=== PATIENT | female | born 1980 | race Caucasian/White ===

== ENCOUNTER 2019-02-05 22:20 | Emergency (ER) | payer BC, SELFPAY ==
[2019-02-05 22:21] VITALS: BP 159/102; PULSE 104; RESP 16; TEMP 37.1; O2SAT 97; BMI 32.5
--- NOTE | 2019-02-05 22:32 | ED.VIS.LOWEX ---
History of Present Illness Chief Complaint: Lower Extremity Injury Informant: Patient Occurred: Hours - 2 Mechanism/Context: - - twisted left ankle while walking on pavement Context: Sudden Onset Timing: Continuous Quality of Pain: Aching Location: left lateral ankle Current Severity: Moderate Maximum Severity: Severe Worsened by: WBing, moving Relieved by: remaining still Associated Symptoms: Negative for: Parasthesia, Weakness, Loss of Funtion Narrative: Patient states she has a history of multiple foot surgeries and has unstable feet and ankles. She twisted her ankle tonight. She did not fall or injure anything else. She has been able to bear weight but just barely. She is using crutches to help her. She denies any numbness. Past Medical History - Allergies and Home Meds Allergies/Adverse Reactions: Allergies cefaclor [From Ceclor] Adverse Reaction (Verified 02/05/19 22:23) Upset Stomach metronidazole [From Flagyl] Adverse Reaction (Verified 02/05/19 22:23) Hives sulfamethoxazole [From Septra] Adverse Reaction (Verified 02/05/19 22:23) Upset Stomach trimethoprim [From Septra] Adverse Reaction (Verified 02/05/19 22:23) Upset Stomach Primary Care Physician: [facility] Doctor,Out of [NON-STAFF] - Past Medical History: None Surgical History: - - Feet orthopedic Lives: Alone Drugs: None Review of Systems Musculoskeletal: Reports: Swelling - Focal lateral ankle and foot on the left only, Extremity Pain Skin: Denies: Rash, Wounds Neurological: Denies: Headache, Weakness, Numbness Physical Exam Vital Signs/Narrative: Vital Signs Temp Pulse Resp BP Pulse Ox 02/05/19 22:21 98.7 F 104 H 16 159/102 H 97 Inital Vital Signs reviewed: Yes - Extremity Exam Left Ankle: Hematoma - Swelling and tenderness lateral malleolus. Joint is stable with lateral forces. Nontender medial malleolus, calcaneus, midfoot, and proximal fibula., Limited ROM. Negative for: Deformity Left Foot: Hematoma - Swelling and tenderness at the lateral aspect of the base of the fifth metatarsal. Skin intact. General: Well nourished, Well developed Head: Normocephalic, Atraumatic Skin: Normal color, No rash, No Trauma Neurological: Alert, Oriented x3, Cranial nerves II-XII grossly intact, Normal Strength, Normal Sensation Psychological: Normal affect, Normal Mood Diagnostic/Tx/Re-eval Impressions Ankle X-Ray 02/05/19 22:35 IMPRESSION: 1. An acute avulsion fracture at the tip of the lateral malleolus is present. Marked soft tissue swelling is present over the lateral side of ankle joint. 2. An acute mildly comminuted fracture of the lateral side of the talus is present minor displacement of the fracture fragments. Fracture at the base of the fifth metatarsal bone is described under the dedicated foot x-ray. Electronically Signed: Lakhwinder Amato MD at 22:58 EST , Service support , Foot X-Ray 02/05/19 22:35 IMPRESSION: 1. Acute mildly displaced fracture at the base of the fifth metatarsal bone. 2. Acute avulsion fracture at the tip of the lateral malleolus. Electronically Signed: Lakhwinder Amato MD at 22:54 EST , Service support , 02/05/19 22:35 Ankle min 3 Views [RAD] Stat Foot 2 Views [RAD] Stat - Medical Decision Making X-rays interpreted as above, the talus does not appear to be in multiple pieces. There is some avulsion at the lateral aspect, and the base of the fifth metatarsal looks to likely be more of an avulsion fracture as opposed to a Zelaya. I discussed with Dr. Woods, who looked at the x-rays. At this time a recommendation is boot orthosis, nonweightbearing status, patient already has crutches, and follow-up in about 1 week in the office. I will give her a prescription for some pain medication. ED Disposition - Plan for ED Patient: Disposition: Home or Assisted Living Diagnosis: Avulsion fracture of left talus, Fracture of base of fifth metatarsal bone of left foot, Closed avulsion fracture of distal end of left fibula Instructions: ANKLE FRACTURE (Distal Fibula), closed, FRACTURE, Foot Prescriptions: Oxycodone HCl/Acetaminophen [Percocet 5/325] 1 tab PO Q6H PRN PRN 3 Days #12 tab PRN Reason: Pain Prescription Printed Referrals: Martha Woods DPM [STAFF PHYSICIAN] - 1 Week Additional Instructions: Do not bear weight on your left lower extremity
--- NOTE | 2019-02-05 22:35 | RAD_ITS ---
STUDY: X-RAY - LEFT ANKLE REASON FOR EXAM: Female, 38 years old. FALL TONIGHT. LATERAL PAIN AND SWELLING. TECHNIQUE: 3 view(s) of the ankle. COMPARISON: None. FINDINGS: An acute avulsion fracture at the tip of the lateral malleolus is present. Marked soft tissue swelling is present over the lateral side of ankle joint. An acute mildly comminuted fracture of the lateral side of the talus is present minor displacement of the fracture fragments. Fracture at the base of the fifth metatarsal bone is described under the dedicated foot x-ray. No additional acute fractures are seen. Normal visualized distal tibia and fibula. Normal medial malleolus. Normal tibiotalar articulation and ankle mortise. Normal visualized calcaneus. The visualized subtalar, talonavicular, calcaneocuboid and tarsal articulations are normal. RAD/Ankle min 3 Views IMPRESSION: 1. An acute avulsion fracture at the tip of the lateral malleolus is present. Marked soft tissue swelling is present over the lateral side of ankle joint. 2. An acute mildly comminuted fracture of the lateral side of the talus is present minor displacement of the fracture fragments. Fracture at the base of the fifth metatarsal bone is described under the dedicated foot x-ray. Electronically Signed: Lakhwinder Amato MD at 22:58 EST , Service support ,
--- NOTE | 2019-02-05 22:35 | RAD_ITS ---
STUDY: X-RAY - LEFT FOOT CLINICAL: Female, 38 years old. FALL TONIGHT. LEFT 5TH METATARSAL PAIN AND SWELLING. TECHNIQUE: 2 view(s) of the foot. COMPARISON: None. FINDINGS: An acute oblique fracture is present through the base of the fifth metatarsal bone extending into the joint space. There is minimal displacement of the fracture fragments. Chronic postsurgical changes are seen in the head and neck of the fifth metatarsal bone and in the mid shaft a small metallic pin is present. Chronic postoperative changes are also seen in the head of the first metatarsal bone. The remaining osseous structures of the foot are unremarkable. Diffuse soft tissue swelling is present. Normal talus, calcaneus, and tarsal bones. Normal visualized subtalar, talonavicular, calcaneocuboid, tarsal and tarsometatarsal articulations. A small avulsion fracture is present at the tip of the lateral malleolus. RAD/Foot 2 Views IMPRESSION: 1. Acute mildly displaced fracture at the base of the fifth metatarsal bone. 2. Acute avulsion fracture at the tip of the lateral malleolus. Electronically Signed: Lakhwinder Amato MD at 22:54 EST , Service support ,
[2019-02-05] MEDS: oxyCODONE 5 MG Tablet PO (23:59)
== END 2019-02-06 00:18 | disposition home or self-care (01) ==
PROVIDERS: Emergency Provider Emergency Medicine
DX: S92.142A Displaced dome fracture of left talus, initial encounter for closed fracture (principal); S92.352A Displaced fracture of fifth metatarsal bone, left foot, initial encounter for closed fracture; S82.62XA Displaced fracture of lateral malleolus of left fibula, initial encounter for closed fracture; X50.1XXA Overexertion from prolonged static or awkward postures, initial encounter; Y93.01 Activity, walking, marching and hiking; Y92.480 Sidewalk as the place of occurrence of the external cause; Y99.9 Unspecified external cause status; Z79.899 Other long term (current) drug therapy
CPT/HCPCS: 73610; 73620; 99283

== ENCOUNTER → 2019-02-09 09:52 | Outpatient (CLI) | payer BC, SELFPAY ==
[2019-02-05 22:21] VITALS: BMI 32.5
[2019-02-09 12:25] LABS: Vitamin D,25 Hydroxy 23.8 ng/mL (29.95-100.01)
== END ==
PROVIDERS: Referring Provider Podiatrist; Visit Provider Podiatrist
DX: E55.9 Vitamin D deficiency, unspecified (principal); S82.899A Other fracture of unspecified lower leg, initial encounter for closed fracture; X58.XXXA Exposure to other specified factors, initial encounter; Y93.9 Activity, unspecified; Y92.9 Unspecified place or not applicable; Y99.9 Unspecified external cause status
CPT/HCPCS: 36415; 82306

== ENCOUNTER 2019-08-10 15:00 | Outpatient (RCR) | payer BC, SELFPAY ==
--- NOTE | 2019-07-15 11:58 | HP.PTEVAL_ITS ---
Patient's Visit Information SHIMA BOSE is a 39 year old F referred to Physical Therapy by Dr. Martha Woods DPM with a diagnosis of healed 5th metatarsal fracture, peroneal tendonitis, and walking difficulty. Date of Evaluation: 07/15/19 Physical Therapist: Johnathan Delong DPT - Visit Plan Frequency: 2-3x /Week Duration: 4-6 Weeks Plan: Start with BLE ankle, knee, hip strengthening. Add in walking progression for HEP. Eccentric loading of L peroneals - Subjective Pt. is here today for her initial evaluation with diagnosis of healed 5th metatarsal fracture, peroneal tendonitis, adn walking difficulty. Pt. reports ahving multiple fracture in her L ankle and foot over the past few years. Her most recent injury was just walking and twisted her ankle resulting in a 5th metatarsal fx. Pt. was in a boot for ~5 months per patient. Pt. just recently was allowed to remove the boot ~2 weeks ago. Pt. has been walking on her treadmill upto an hour with some soreness that does alleviate with in 24 hours. Pt. reports pain at 5th metatarsal, inferior to lateral malleolus and along peroneal tendon and muscle belly. 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 Pt. has a history of multiple fractures of L foot/ankle, but also other body parts. No osteoporosis, noted with scans. Pt. does have heart disease and a previous lumbar surgery. She also had a recent breast reduction, elective, just to be aware for lifting. Pt. is hopeful to reduce her foot pain in order to get back to all recreational activities without limitations. - Pain L 5th metatarsal Pain Intensity (Out of 10): 2 Pain Intensity Range: 0, 5 L lateral malleolus Pain Intensity (Out of 10): 1 Pain Intensity Range: 0, 4 L peroneal region Pain Intensity (Out of 10): 2 Pain Intensity Range: 0, 6 - Objective POSTURE: Pt. had general flexed posture, rounded thoracic spine (improves with VCing), normal illiac crest height. Pt. has normal ankle positioning in stance. Slight L ankle EVR postioning. PALPATION: Pt. has tenderness along peroneal tendon and muscle belly. Pt. has tenderness inferior aspect of lateral malleolus, tenderness at 5th metatarsal. NEURO: normal throughout. Normal sensation and normal DTR of BLEs. ROM: L ankle- DF 18deg, PF 38deg, INV 18deg, EVR 14deg mild increase NW. Pt. has good HS length. L hip- good ROM no increase in symptoms. R ankle- DF 18deg, PF 43deg, INV 18deg, EVR 18deg. No pain. R HS length- good, good hip ROM as well. MMT: LLE- ankle- DF 5-/5, PF 5-/5, EVR 4+/5, INV 5-/5. Knee- ext 5-/5, flexion 4+/5; hip- flexon 5-/5, abd 4/5, ext 4/5. RLE- ankle- 5/5 throughout; knee- ext 5-/5, flexion 5-/5; hip- flexion 5- /5, adb 4/5, ext 4/5. GAIT: Pt. ambulates with AD, but does ahve increased pronation of L foot and hind foot valgus bilaterally, L worse than R. STAIRS: Pt. has increased anterior/lateral pain in her ankle with loading LLE with descending. - Goals Goal 1:: LTG: Pt. to be I with HEP. Goal Time Frame: 4-6 Weeks Goal 2:: STG: Pt. to walk upto 30min without increase in symptoms. Goal Time Frame: 2-4 Weeks Goal 3:: LTG: Pt. to complete recreational walking upto 1 hour without increase in symptoms. Goal Time Frame: 4-6 Weeks Goal 4:: LTG: Pt. to have increased strength of BLEs and core by 1/2 grade of all effected musculature. Goal Time Frame: 4-6 Weeks Goal 5:: LTG: Pt. to have increased controlin SLS on LLE, being able to maintain SLS without external support of atleast 30sec. - Rehabilitation Potential Physical Therapy Diagnosis: Pt. has signs and symptoms consistent with healed 5th metatarsal fracture, peroneal tendonitis, adn walking difficulty. Pt. has subsequent weakness in BLEs, L worse than R. She has increased pain and increase difficulty with prolonged walking. Pt. would benefit from PT to work on general LE strengthening, eccentric L peroneal strengthening and L ankle stability exercises. Rehabilitation Potential: Good - Anticipated Interventions Patient/Client Instruction: Educate patient on: Condition, Plan of Care, Risk Factors, Benefits of Fitness Program For the Purpose of:: To improve decision making, To facilitate caregiver knowledge, To improve self management, To prevent re-injury, To improve ability to perform tasks related to life management, To improve tolerance to ADL's Therapeutic Exercise to Include: Strength training, Power training, Endurance training, Balance training, Coordination, Body mechanics, Postural training, Flexibilty training, Gait and locomotor training, Passive ROM, Active ROM For the Purpose of:: To decrease pain, To decrease swelling/inflammation, To in crease ROM, To improve nutrient delivery to tissue, To increase oxygenation perfusion, To improve muscle performance and motor function, To improve ability to perform ADL's, To increase tolerance to activity/condition/position, To improve performance and independence with ADL's, To decrease level of supervision to perform tasks, To improve ability of physical actions for home/community/work/leisure, To improve gait and locomotor functions, To improve health of tissue, To decrease soft tissue restriction, To improve endurance TENS: Yes IF ES: Yes Cryotherapy (ice pack, ice massage): Yes Thermo therapy (hot pack): Yes Ultrasound (thermal/non thermal): Yes For the Purpose of:: To decrease pain, To decrease swelling/inflammation, To increase ROM, To improve nutrient delivery to tissue, To increase oxygenation perfusion, To improve muscle performance and motor function, To improve ability of physical actions for home/community/work/leisure, To improve gait and locomotor functions, To improve health of tissue, To decrease soft tissue restri ction, To increase flexibility/ROM Thank you for the opportunity to evaluate your patient. For Medicare and Medicare HMO plans, please review the plan of care and approve it. It will need to be FAXED BACK to us at [phone] for Medicare purposes. For Medicare only, by signing this I certify the plan of care. Please let me know if there are questions or concerns regarding this plan of care. Physician Signature: Date:
== END 2019-08-10 19:00 | disposition home or self-care (01) ==
LOC: PT 15:00
PROVIDERS: Referring Provider Podiatrist; Visit Provider Podiatrist
DX: S92.355D Nondisplaced fracture of fifth metatarsal bone, left foot, subsequent encounter for fracture with routine healing (principal); M76.72 Peroneal tendinitis, left leg; R26.2 Difficulty in walking, not elsewhere classified
CPT/HCPCS: 97110; 97161

== ENCOUNTER → 2022-04-13 | Outpatient (CLI) | payer OTHER, SELFPAY ==
--- NOTE | 2022-04-13 07:35 | MRI_ITS ---
STUDY: MRI LUMBAR SPINE WITHOUT CONTRAST REASON FOR EXAM: Female, 41 years old. Low back pain, hx discectomy/laminectomy. Worsenin -- Worsening radicular pain, failed PT TECHNIQUE: Standardized fat and water weighted pulse sequences were obtained in the sagittal and axial planes. COMPARISON: None FINDINGS: T12-L1: Normal endplates. Normal disc height, hydration and morphology. Normal bilateral facet joints. Normal central canal and bilateral lateral recesses. Normal bilateral intervertebral neural foramina. Normal lumbar lordosis. There is mild levo scoliosis. Normal conus medullaris that terminates at T12 L1-2: Normal endplates. Normal disc height, hydration and normal morphology Normal bilateral facet joints. Normal central canal and bilateral lateral recesses. Normal bilateral intervertebral neural foramina. L2-3: Normal endplates. Normal disc height, hydration and minimal annular bulge. Normal bilateral facet joints. Normal central canal and bilateral lateral recesses. Normal bilateral intervertebral neural foramina. L3-4: Normal endplates. Normal disc height, hydration and morphology. Normal bilateral facet joints. Normal central canal and bilateral lateral recesses. Normal bilateral intervertebral neural foramina. L4-5: Normal endplates. Normal disc height, desiccation mild annular bulge with small central disc protrusion.. Facet arthropathy and thickening of ligamenta flava more severe on the left.. Mild narrowing of the central canal and bilateral lateral recesses. Mild right neural foraminal stenosis and moderate narrowing on the left L5-S1: Grade 1 spondylolisthesis.. Normal disc space height with mild annular bulge and moderate sized broad-based central/left paracentral disc protrusion compressing and displacing the descending left S1 nerve root. Bilateral facet arthropathy. Mild narrowing of the central canal and moderate left lateral recess stenosis. Moderate bilateral neural foraminal encroachment Normal visualized sacral ala. Normal visualized paraspinous soft tissue structures. MRI/Spine Lumbar (Routine) IMPRESSION: No evidence for acute fracture or other significant bony pathology. Mild scoliosis and degenerative changes. Spinal stenosis at L4-5 and L5-S1 secondary to disc disease and facet arthropathy more severe on the left. Findings as above Electronically Signed: Sedrick Garza MD at 20:00 EST ,
== END | disposition home or self-care (01) ==
LOC: MRI 07:33
PROVIDERS: PCP Internal Medicine; Visit Provider Internal Medicine
DX: M54.41 Lumbago with sciatica, right side (principal); M54.42 Lumbago with sciatica, left side; G89.29 Other chronic pain; Z98.890 Other specified postprocedural states
CPT/HCPCS: 72148

== ENCOUNTER → 2022-08-07 | Outpatient (CLI) | payer OTHER, SELFPAY ==
[2022-08-07 10:33] LABS: Absolute Lymphocyte Count 2.23 X10^3/uL (0.83-4.51); Basophil# 0.05 X10^3/uL; Basophil% 0.4 % (0-1); Eosinophil# 0.17 X10^3/uL; Eosinophils% 1.5 % (0-5); Hematocrit 41.7 % (37-47); Hemoglobin 13.5 g/dL (12.0-15.0); Lymphocyte # 2.23 X10^3/ul (0.83-4.51); Lymphocyte % 19.5 % (19-41); Mean Corp Hgb Conc 32.4 g/dL (32-36); Mean Corpuscular Hgb 26.3 pg (27.0-32.0); Mean Corpuscular Volume 81.3 fL (81-99); Mean Platelet Vol. 9.5 fl (6.2-12.0); Monocyte# 0.88 X10^3/uL; Monocyte% 7.7 % (0-10); NRBC Flagged by Analyzer 0 % (0-5); Neutrophil # 8.04 X10^3/uL (2.7-7.7); Neutrophil % 70.5 % (47-70); Platelet Count 400 K/mm3 (150-450); RBC Distribution Width CV 15.1 % (11.6-14.6); RBC Distribution Width SD 44.8 fl (35.1-43.9); Red Blood Count 5.13 M/mm3 (4.2-5.4); White Blood Count 11.4 K/mm3 (4.4-11.0)
[2022-08-07 11:08] LABS: Hemoglobin A1c 5.2 % (3.8-5.6)
[2022-08-07 11:14] LABS: Insulin 17.6 mU/L (2.6-37.6); Vitamin D,25 Hydroxy 48.5 ng/mL
[2022-08-07 11:16] LABS: ALB/GLOB Ratio 0.9 RATIO (0.9-2.4); AST(SGOT) 21 U/L (15-37); Alanine Aminotransfer ALT/SGPT 32 U/L (13-56); Albumin, Serum 3.5 g/dL (3.2-5.0); Alkaline Phosphatase 72 U/L (45-117); Anion Gap 5 (5-15); BUN 13 mg/dL (7-18); BUN/Creat Ratio 14.3 RATIO (10-20); Chloride 105 mmol/L (98-107); Cholesterol 187 mg/dL (200); Creatinine, Serum 0.91 mg/dL (0.55-1.02); EST Glomerular Filtration Rate 72 mL/min (>60); Est Glom Filt Rate - Afr Amer 87 mL/min (>60); Globulin 3.9 g/dL (2.2-4.2); Glucose 92 mg/dL (74-106); High Density Lipoprotein 38 mg/dL; Iron 34 ug/dL (50-170); Iron Binding Capacity,Total 501 ug/dL (250-450); Magnesium 2.3 mg/dL (1.6-2.6); PERCENT IRON SATURATION 6.8 % (15.0-55.0); Potassium 3.7 mmol/L (3.5-5.1); Protein, Total 7.4 g/dL (6.4-8.2); Sodium Level 135 mmol/L (136-145); Thyroid Stim Hormone (TSH) 3.82 uIU/mL (0.358-3.74); Triglycerides 240 mg/dL; Very Low Density Lipoprotein 48 mg/dL (5-40)
[2022-08-07 13:53] LABS: Free T3 2.7 pg/mL (2.18-3.98)
== END | disposition home or self-care (01) ==
LOC: LAB 09:59
PROVIDERS: PCP Internal Medicine; Referring Provider Internal Medicine; Visit Provider Internal Medicine
DX: M51.27 Other intervertebral disc displacement, lumbosacral region (principal); E55.9 Vitamin D deficiency, unspecified; I10 Essential (primary) hypertension; R35.0 Frequency of micturition; R73.9 Hyperglycemia, unspecified; Z98.890 Other specified postprocedural states; Z13.220 Encounter for screening for lipoid disorders
CPT/HCPCS: 36415; 80053; 80061; 82306; 83036; 83525; 83540; 83550; 83735; 84439; 84443; 84481; 85025

== ENCOUNTER 2022-08-26 11:57 | Day surgery (SDC) | payer OTHER, SELFPAY ==
[2022-08-26] VITALS (7 sets, daily range): BP systolic 106–141; BP diastolic 72–94; PULSE 80–93; RESP 16–18; TEMP 36.1–36.7; O2SAT 98–100; BMI 36.8
[2022-08-26 12:29] LABS: Internal QC Validated? YES +Cl - CLEAR BKGD; Pregnancy, Urine Negative Negative
--- NOTE | 2022-08-26 12:30 | RAD_ITS ---
PROCEDURE: Lumbar radiofrequency ablations. DATE OF EXAMINATION: August 26, 2022 INDICATION: Female, 42 years old. Chronic back pain. FLUOROSCOPY TIME (if supplied): 00:09 minutes/seconds. 9 images are submitted RAD/Fluor Guidance for Spine Inj IMPRESSION: Intraoperative images are provided for radiofrequency ablations on the right at L2-3, L3-4, L4-5, and L5-S1. Electronically Signed: Rc Zavala MD at 14:30 EDT Reading Location ID and State: [id number] / Unknown , Service support ,
[2022-08-26] MEDS: Lactated Ringers 1,000 ML 15 ML IV (12:36)
[2022-08-26] MEDS: 0.9% Normal Saline (Pres. free 10 ML Vial (12:59)
[2022-08-26] MEDS: Lidocaine 1% (5 ml sdv) 5 ML Vial (13:12)
[2022-08-26] MEDS: MethylPREDNISolone Acetate 80 MG/ML Vial (13:12)
--- NOTE | 2022-08-26 13:30 | OP.PCM_ITS ---
Report of Operation Date of Procedure: 08/26/22 Pre-Operative Diagnosis: Lumbosacral radiculopathy, postlaminectomy syndrome of the lumbar spine, lumbosacral spinal stenosis Post-Operative Diagnosis: Lumbosacral radiculopathy, postlaminectomy syndrome of lumbar spine, lumbosacral spinal stenosis Surgery/Procedure Performed:: Diagnostic/therapeutic caudal epidural steroid injection under fluoroscopic guidance Type of Anesthesia: MAC Estimated Blood Loss (mL): Minimal Description of Procedure: DESCRIPTION OF PROCEDURE: History and physical of today was reviewed. Risks and benefits of the procedure were explained. The patient understood and agreed to proceed. Informed consent was obtained. IV inserted per routine protocol. The patient was taken to the operating room and placed in the prone position with a pillow positioned underneath the abdomen. The lower back and tailbone area was prepped and draped in a sterile fashion using iodine x3. Under fluoroscopy guidance on a lateral view, the caudal space was identified. The skin and subcutaneous tissue was anesthetized with approximately 3 mL of 1% lidocaine using a 25-gauge regular needle. Under direct visualization with fluoroscopy, using a 22-gauge 3-1/2-inch spinal needle, the needle was advanced via the skin through the sacral hiatus. The tip of the needle was passed thro ugh the sacrococcygeal ligament and advanced to approximately S4 area. After negative aspiration of blood or CSF, a total of 3 mL of contrast was injected to confirm correct placement of the needle as well as cephalad spread. The spread was followed to approximately L5 area. After confirmation on AP as well as lateral view and repeated negative aspiration, a total of 15 mL of preservative- free 0.125% Marcaine with 80 mg of Depo-Medrol was injected easily. The needle was then removed intact. The patient experienced no sign or symptoms of intrathecal or intravascular injection. The patient experienced no paresthesia. The procedure was completed without any apparent difficulty or any complications. The patient appeared to tolerate it well. ASSESSMENT AND PLAN: This is a 42-year-old female with lumbosacral radiculopathy, postlaminectomy syndrome of the lumbar spine, lumbosacral spinal stenosis status post diagnostic/therapeutic caudal epidural steroid injection, patient will continue her current medications, patient will follow in approximately 2 weeks for reevaluation. Complications None
== END 2022-08-26 13:53 | disposition home or self-care (01) ==
LOC: SDC 11:58 → AC 12:01
PROVIDERS: Anesthesiology; PCP Internal Medicine; Referring Provider Anesthesiology Pain Medicine; Visit Provider Anesthesiology Pain Medicine
PROC: 3E0S3BZ Introduction of Anesthetic Agent into Epidural Space, Percutaneous Approach (ICD-10-PCS; CPT 62282; principal; 2022-08-26 13:25)
DX: M96.1 Postlaminectomy syndrome, not elsewhere classified (principal); M54.17 Radiculopathy, lumbosacral region; M48.07 Spinal stenosis, lumbosacral region; I10 Essential (primary) hypertension; Z79.82 Long term (current) use of aspirin; Z79.899 Other long term (current) drug therapy
CPT/HCPCS: 62323; 64483; 77003; 81025; J7120; J3490

== ENCOUNTER → 2023-07-31 | Outpatient (CLI) | payer OTHER, SELFPAY ==
[2023-07-31 11:11] LABS: Absolute Lymphocyte Count 3.26 X10^3/uL (0.83-4.51); Absolute Neutrophil Count 7.3 X10^3/uL (2.0-7.7); Basophil# 0.05 X10^3/uL; Basophil% 0.4 % (0-1); Eosinophil# 0.55 X10^3/uL; Eosinophils% 4.6 % (0-5); Hemoglobin 14.3 g/dL (12.0-15.0); Lymphocyte # 3.26 X10^3/ul (0.83-4.51); Lymphocyte % 27.5 % (19-41); Mean Corp Hgb Conc 32.5 g/dL (32-36); Mean Corpuscular Hgb 26.9 pg (27.0-32.0); Mean Corpuscular Volume 82.7 fL (81-99); Mean Platelet Vol. 10.1 fl (6.2-12.0); Monocyte# 0.66 X10^3/uL; Monocyte% 5.6 % (0-10); NRBC Flagged by Analyzer 0 % (0-5); Neutrophil # 7.31 X10^3/uL (2.7-7.7); Neutrophil % 61.6 % (47-70); Platelet Count 350 K/mm3 (150-450); RBC Distribution Width CV 14.1 % (11.6-14.6); RBC Distribution Width SD 42.1 fl (35.1-43.9); Red Blood Count 5.32 M/mm3 (4.2-5.4); White Blood Count 11.9 K/mm3 (4.4-11.0)
[2023-07-31 11:39] LABS: Vitamin B12 394 pg/mL (211-911); Vitamin D,25 Hydroxy 35.4 ng/mL
[2023-07-31 12:01] LABS: AST(SGOT) 36 U/L (15-37); Alanine Aminotransfer ALT/SGPT 53 U/L (13-56); Albumin, Serum 3.8 g/dL (3.2-5.0); Alkaline Phosphatase 68 U/L (45-117); Anion Gap 4 (5-15); BUN 9 mg/dL (7-18); BUN/Creat Ratio 10.3 RATIO (10-20); Calcium,Total 9.3 mg/dL (8.5-10.1); Chloride 104 mmol/L (98-107); Cholesterol 167 mg/dL (200); Creatinine, Serum 0.88 mg/dL (0.55-1.02); EST Glomerular Filtration Rate 75 mL/min (>60); Est Glom Filt Rate - Afr Amer 90 mL/min (>60); Free T3 2.9 pg/mL (2.18-3.98); Globulin 3.7 g/dL (2.2-4.2); Glucose 95 mg/dL (74-106); High Density Lipoprotein 42 mg/dL; Protein, Total 7.5 g/dL (6.4-8.2); Sodium Level 135 mmol/L (136-145); T4 Free Direct 1.09 ng/dL (0.76-1.46); Thyroid Stim Hormone (TSH) 3.26 uIU/mL (0.358-3.74); Triglycerides 166 mg/dL; Very Low Density Lipoprotein 33 mg/dL (5-40)
== END | disposition home or self-care (01) ==
LOC: LAB 09:59
PROVIDERS: PCP Internal Medicine; Visit Provider Internal Medicine
DX: E88.818 Other insulin resistance (principal); E88.810 Metabolic syndrome; E61.1 Iron deficiency; E55.9 Vitamin D deficiency, unspecified; I10 Essential (primary) hypertension; Z13.220 Encounter for screening for lipoid disorders; R73.9 Hyperglycemia, unspecified
CPT/HCPCS: 36415; 80053; 80061; 82306; 82607; 83036; 83735; 84439; 84443; 84481; 85025

== ENCOUNTER → 2023-08-13 | Outpatient (CLI) | payer OTHER, SELFPAY ==
[2023-08-13 10:26] LABS: Glucose 101 mg/dL (74-106)
[2023-08-15 15:08] LABS: Insulin Level 7.1 uIU/mL (2.6-24.9)
== END | disposition home or self-care (01) ==
PROVIDERS: PCP Internal Medicine; Referring Provider Internal Medicine; Visit Provider Internal Medicine
DX: E88.818 Other insulin resistance (principal)
CPT/HCPCS: 36415; 82947; 83525

== ENCOUNTER → 2024-04-20 | Outpatient (CLI) | payer OTHER, SELFPAY ==
--- NOTE | 2024-04-20 16:27 | MRI_ITS ---
PROCEDURE: MRI cervical spine without IV contrast REASON FOR EXAM: Pain, radiculopathy TECHNIQUE: Multisequence multiplanar MR images of the cervical spine were obtained without the administration of intravenous contrast. COMPARISON: None. FINDINGS: Vertebral body heights are within normal limits. Negative for fracture or marrow replacement. Focal kyphosis of the lower cervical spine from C5 through C7. Alignment is otherwise within normal limits. Spinal cord is of normal caliber, contour and signal intensity. No paraspinal mass. C2-3: No focal disc abnormality, spinal stenosis or foraminal narrowing. C3-4: No focal disc abnormality or spinal stenosis. Mild bilateral foraminal narrowing. C4-5: No focal disc abnormality or spinal stenosis. Mild bilateral foraminal narrowing. C5-6: Small posterior disc bulge. No significant spinal stenosis or foraminal narrowing. C6-7: Small posterior disc osteophyte complex and bilateral uncovertebral arthrosis. Mild spinal stenosis. Moderate bilateral foraminal narrowing, greater on the right. C7-T1: No focal disc abnormality, spinal stenosis or foraminal narrowing. MRI/Spine Cervical (Routine) IMPRESSION: Acquired mild spinal stenosis and moderate bilateral foraminal narrowing at C6- 7. Reading Location: [place]
== END | disposition home or self-care (01) ==
PROVIDERS: PCP Internal Medicine; Referring Provider Anesthesiology Pain Medicine; Visit Provider Anesthesiology Pain Medicine
DX: M50.30 Other cervical disc degeneration, unspecified cervical region (principal)
CPT/HCPCS: 72141

== ENCOUNTER 2024-06-24 09:27 | Emergency (ER) | payer OTHER, SELFPAY ==
[2024-06-24 09:28] VITALS: BP 122/89; PULSE 79; RESP 14; TEMP 36.6; O2SAT 98
--- NOTE | 2024-06-24 09:59 | EKG12_ITS ---
Test Reason : SYNCOPE Blood Pressure : */* mmHG Vent. Rate : 87 BPM Atrial Rate : 87 BPM P-R Int : 214 ms QRS Dur : 106 ms QT Int : 396 ms P-R-T Axes : 52 -26 73 degrees QTcB Int : 476 ms Sinus rhythm with 1st degree A-V block Minimal voltage criteria for LVH, may be normal variant ( Surya product ) Septal infarct , age undetermined Abnormal ECG Confirmed by DERRICK NOLAN, FRANK ([id number]), web editor SIERRA PRUETT ([id number]) on 06/28/2024 7:05:43 AM Referred By: Confirmed By: FRANK MEZA MD
--- NOTE | 2024-06-24 09:59 | CT_ITS ---
PROCEDURE: BRAIN/HEAD WITHOUT CONTRAST 06/24/2024 REASON FOR EXAM: HEADACHS, HEAD TRAUMA TECHNIQUE: Head CT without intravenous contrast. Coronal and Sagittal reconstruction series were provided. One or more dose reduction techniques were used (e.g., Automated exposure control, adjustment of the mA and/or kV according to patient size, use of iterative reconstruction technique. RADIATION DOSE SUMMARY: CTDlvol: 47.06 mGy DLP: 837.39 mGycm COMPARISON: None FINDINGS: Brain: Normal CSF Spaces: Normal Sinuses/Mastoids: Clear at visualized levels Bones: Unremarkable CT/Brain/Head without Contrast IMPRESSION: NORMAL NONCONTRAST HEAD CT. Reading Location: [place]
--- NOTE | 2024-06-24 09:59 | CT_ITS ---
PROCEDURE: SINUS/FACIAL BONE REASON FOR EXAM: JAW PAIN, TRAUMA TECHNIQUE: CT of the paranasal sinuses without contrast. Coronal and Sagittal reconstruction series were provided. One or more dose reduction techniques were used (e.g., Automated exposure control, adjustment of the mA and/or kV according to patient size, use of iterative reconstruction technique). COMPARISON: None. 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 Nasal Septum: Deviation towards the left side of the midline with a bony spur. Mastoids/Middle Ears: Unremarkable CT/Sinus/Facial Bone IMPRESSION: No evidence of sinusitis. Nasal septal deviation towards the left side of the midline with a bony spur. Reading Location: [id number]
--- NOTE | 2024-06-24 10:01 | EX.ED.DYSGE1 ---
HPI History of Present Illness Chief Complaint: Syncope Informant: patient Narrative Narrative: Patient 43-year-old female with history of back pain, hypertension, congenital heart disease status post repair in 2021 of ascending aortic aneurysm with graft and subaortic stenosis with aortic regurgitation?no complications presenting for 2 episodes of syncope yesterday with associated diarrhea. She notes that the night before she had been drinking and felt hung over that morning. She woke up around 6:30 AM and showered. She then was laying on the couch when she got up because she believes she did not vomit or have diarrhea. She was trying to the bathroom when she passed out. She she landed on her face and cut her lip. She stooled on herself. She then tried to get up and then passed out again while walking through the doorway. Had another episode of diarrhea. She then was able to get herself to the bathroom. By this time it was around 715. She notes she was sweaty. She states that she knows she should come in yesterday but she was not feeling good and just wanted to rest. She came in today because she was worried she needed stitches and is having continued lip pain and jaw pain. She currently denies any chest pain or difficulty breathing. Denies any vision changes. No further episodes of syncope. Notes that she does have chronic headaches and gets at least 2 headaches a day. She had been taking Flexeril nightly but stopped doing that within the last month. She notes she does follow with a chiropractor for her neck pain and headaches. No fevers reported. Denies any urinary symptoms. No other complaints or concerns at this time. Does not know when her last tetanus was. Denies any significant history of syncope or arrhythmia. [facility] Medical History Adult wellness visit Cervical pain (neck) Eustachian tube dysfunction Acute URI Wears contact lenses History of Clostridium difficile infection Depression Marijuana use Alcohol use History of steroid therapy Low iron Back pain Syncope History of hiatal hernia Colitis History of IBS History of pain when walking History of echocardiogram History of stress test Cardiology follow-up encounter Diverticulitis Vitamin D deficiency GERD (gastroesophageal reflux disease) Heart murmur Hypertension Heart disease Back problem Arthritis Seasonal allergies Subaortic stenosis Ascending aortic aneurysm Home Medications ?Medication ?Instructions ?Recorded ?Last Taken ?Type aspirin 81 mg tablet,delayed 81 mg PO BID 11/01/21 06/23/24 History release fluoxetine 20 mg capsule 40 mg (2 x 20 mg) PO DAILY #90 caps 02/16/24 06/24/24 Rx cyclobenzaprine 10 mg tablet 10 mg PO QHS #30 tabs 06/22/24 Unknown Rx acetaminophen 500 mg tablet 1,000 mg PO Q6H PRN pain 06/24/24 06/24/24 History (Tylenol Extra Strength) esomeprazole magnesium 20 mg 20 mg PO DAILY 06/24/24 06/24/24 History capsule,delayed release (Nexium 24HR) levonorgestrel-ethinyl estradiol 1 tab PO DAILY 06/24/24 06/24/24 History 0.1 mg-20 mcg tablet (Vienva) tirzepatide (weight loss) 15 15 mg subcut QWEEK 06/24/24 06/18/24 History mg/0.5 mL subcutaneous pen injector (Zepbound) Allergy/AdvReac Type Severity Reaction Status Date / Time cefaclor (From Ceclor) AdvReac Upset Verified 06/24/24 09:28 Stomach metronidazole (From Flagyl) AdvReac Hives Verified 06/24/24 09:28 sulfamethoxazole (From AdvReac Upset Verified 06/24/24 09:28 Septra) Stomach trimethoprim (From Septra) AdvReac Upset Verified 06/24/24 09:28 Stomach Family History Mother Heart disease Hypertension Myocardial infarction, Onset Age: 55 Diabetes Other Alcoholism Arthritis Asthma Surgical History Hx of colonoscopy History of foot surgery History of laminectomy History of knee surgery History of tonsillectomy Social History Smoking Status: Never smoker Tobacco: How many years used: 20 alcohol intake: current alcohol intake frequency: holidays/special occasions only substance use type: does not use what type of physical activity do you participate in: walking frequency: daily ROS ROS ED Constitutional Constitutional ED: Reports sweats; Denies chills or fever(s) Eyes Eyes: Denies blurry vision or change in vision ENT ENT ED: Reports other Details: Bottom lip laceration, dental pain?upper front teeth ; Denies sore throat Cardiovascular Cardiovascular: Denies chest pain or palpitations Respiratory/Chest Respiratory/Chest: Denies cough or dyspnea Gastrointestinal Gastrointestinal: Reports diarrhea and nausea; Denies abdominal pain Genitourinary Genitourinary ED: Denies dysuria Musculoskeletal Musculoskeletal: Reports arthralgias, back pain and neck pain Integumentary Denies rash Neurologic Neurologic: Reports headache(s) and weakness; Denies paresthesias Hematologic/Lymphatic Hematologic/Lymphatic: Denies easy bleeding or easy bruising EXAM Physical Exam Const Vital Signs: 06/24/24 09:28 06/24/24 09:30 06/24/24 11:03 Temperature 98 F Temperature Source Temporal Pulse Rate 79 Pulse Rate [Lying] 69 Pulse Rate [Sitting (for 1 minute prior to obtaining)] 72 Pulse Rate [Standing (for 1 minute prior to obtaining)] 77 Respiratory Rate 14 Respiratory Effort Normal Respiratory Pattern Normal Blood Pressure 122/89 H Blood Pressure [Lying] 122/87 H Blood Pressure [Sitting (for 1 minute prior to obtaining)] 115/72 Blood Pressure [Standing (for 1 minute prior to obtaining)] 133/85 H Blood Pressure Mean 100 Blood Pressure Mean [Lying] 98 Blood Pressure Mean [Sitting (for 1 minute prior to obtaining)] 86 Blood Pressure Mean [Standing (for 1 minute prior to obtaining)] 101 Pulse Ox 98 Oxygen Delivery Method Room Air Positive well nourished and well developed General Appearance ED: well developed and NAD HEENT Reports TM's clear and moist mucous membranes HEENT Narrative: No signs of a basilar skull fracture. Normal nares present. Slight difficulty opening the mouth fully and pain when trying to light down. No obvious chipped, loose or avulsed teeth present. At the lower lip there is evidence of a through and through laceration with a slightly gaping wound on the mucosal surface and underneath the vermilion border there is approximately 1 cm linear abrasion. No gaping or drainage the outside portion. No involvement of the vermilion border. Mild tenderness palpation of the occiput with no associated hematoma present. No palpable skull fracture. tenderness Tympanic Membrane ED: Yes TM's clear bilateral (No hemotympanum) Eyes PERRL and EOMs intact bilaterally Neck supple General: Negative for tenderness Chest Wall inspection of chest normal and palpation of chest normal Chest Narrative: Midline sternotomy scar present. Resp normal respiratory effort and clear to auscultation bilaterally Cardio regular rate and regular rhythm GI normal to inspection, nondistended, normoactive bowel sounds and non-tender Extremity normal to inspection General Extremety ED: Negative for edema or tenderness General Extremity: Negative for edema Neuro oriented x3 and CN's II-XII intact bilaterally Neuro Narrative: Moving all extremities. No focal neurologic deficits appreciated. Sensorium / Orientation: alert Motor Exam: general weakness Psych mental status grossly normal Skin Skin Narrative: Well-approximated linear lip laceration below the vermilion border. See ENT exam MDM MDM MDM Narrative Medical decision making narrative: Patient evaluated for syncopal episode x 2 with associated diarrhea yesterday. She did have some trauma to her face. Differential includes vasovagal syncope, Alexander abnormality, arrhythmia, CE, mandibular/maxillary fracture, intracranial hemorrhage, space-occupying lesion, dehydration. Lower sufficient for ACS as she is not having associated chest pain. But she did sustain a lip laceration it has been 24 hours and will be allowed to heal by secondary intent. Patient was offered tetanus but declines at this time. She states she will updated at work as she gets them for free at work. Workup including EKG, orthostatic vital signs, CBC, CMP, high-sensitivity troponin, lipase, urinalysis, CT of the brain as well as CT of the facial bones and chest x-ray is obtained. Chest x-ray viewed by myself as well as radiology does not show any acute process does show prior sternotomy wires/postoperative changes. Abdomen soft and nontender. She has normal white blood cell count with no significant laboratory values. Do not think CT of the abdomen and pelvis is indicated at this time. EKG does not show any acute ischemia or other acute abnormality. Lab work largely normal. Orthostatics normal. Patient is given a liter of IV fluids in the emergency room. CT of the face does not show any acute traumatic injury. Orthostatic vital signs are normal in emergency room. Patient is feeling well. She is comfortable discharge home. Given return precautions. Encourage follow-up with primary care doctor as needed. Lab Data Attestation: I reviewed the patient's lab results. Labs: Laboratory Results - last 24 hr 06/24/24 06/24/24 10:01 11:14 WBC 7.8 RBC 4.62 Hgb 13.8 Hct 40.2 MCV 87.0 MCH 29.9 MCHC 34.3 RDW Std Deviation 39.8 RDW Coeff of [place] 12.5 Plt Count 329 MPV 9.2 Immature Gran % (Auto) 0.300 Neut % (Auto) 50.4 Lymph % (Auto) 40.2 [place] % (Auto) 5.5 Eos % (Auto) 3.2 Baso % (Auto) 0.4 Absolute Neuts (auto) 3.9 Absolute Lymphs (auto) 3.12 Nucleated RBC % 0 Sodium 137 Potassium 4.8 Chloride 104 Carbon Dioxide 24.1 Anion Gap 9 BUN 18 Creatinine 0.77 Est GFR (MDRD) Non-Af 98 BUN/Creatinine Ratio 22.6 H Glucose 99 Calcium 9.0 Magnesium 2.0 Total Bilirubin 0.53 AST 22 ALT 22 Alkaline Phosphatase 40 Troponin T High Sens 7 Total Protein 6.5 Albumin 4.1 Globulin 2.4 Albumin/Globulin Ratio 1.7 Lipase 49 Urine Color Yellow Urine Clarity Clear Urine pH 6.0 Ur Specific [place] 1.015 Urine Protein 30 H Urine Glucose (UA) Normal Urine Ketones Negative Urine Occult Blood 10 H Urine Nitrite Negative Urine Bilirubin Negative Urine Urobilinogen Normal Ur Leukocyte Esterase Negative Urine RBC 0-5 SEEN Urine WBC 0 SEEN Ur Squamous Epith Cells 0-5 SEEN Urine Bacteria 0 SEEN Urine Mucus 0 SEEN Radiography Chest X-Ray - ED: 2 View, Read by ED Physician, Read by Radiologist and No Acute Disease Diagnostic Testing: Clinical Impression(s) from Imaging Studies Brain CT 06/24/24 09:59 IMPRESSION: NORMAL NONCONTRAST HEAD CT. Reading Location: [facility] Facial/Sinus 06/24/24 09:59 IMPRESSION: No evidence of sinusitis. Nasal septal deviation towards the left side of the midline with a bony spur. Reading Location: [facility] Chest X-Ray 06/24/24 10:20 IMPRESSION: Prior sternotomy noted. No evidence of pulmonary edema. Lungs appear clear of acute disease. No pleural effusion or pneumothorax is noted. The cardiomediastinal silhouette is within the normal range. No acute osseous process is seen. No evidence of acute cardiopulmonary disease. Reading Location: [place] [id number] Rhythm Strip Rhythm Strip: Sinus Rhythm Rate: 87 Ectopy: None EKG Initial EKG: Attestation: I personally reviewed and interpreted this EKG as follows: Interpretation: Sinus Rhythm Comments: Normal sinus rhythm at a rate of 87 bpm with first gravy block CA interval 214 Left axis deviation Minimal voltage criteria for LVH Normal ST segments Prior EKG tracings: not available for review Prior: No Prior Discharge Plan Triage Chief Complaint: Syncope ED Provider: Ana Rosa Tariq Dx/Rx/DC Orders Clinical Impression: Syncope and collapse, Diarrhea, Laceration of lip Instructions: ED Diarrhea, Unknown Cause, ED Laceration, Lip or Mouth, ED Fainting, Vagal Reaction Prescriptions: No Action aspirin 81 mg tablet,delayed release (DR/EC) 81 mg PO BID levonorgestrel-ethinyl estrad [Vienva] 0.1-20 mg-mcg tablet 1 tab PO DAILY Zepbound 15 mg/0.5 mL pen injector 15 mg subcut QWEEK esomeprazole magnesium [Nexium 24HR] 20 mg capsule,delayed release(DR/EC) 20 mg PO DAILY acetaminophen [Tylenol Extra Strength] 500 mg tablet 1,000 mg PO Q6H PRN (Reason: pain) fluoxetine 20 mg capsule 40 mg PO DAILY Qty: 90 3RF cyclobenzaprine 10 mg tablet 10 mg PO QHS Qty: 30 1RF Primary Care Provider: Rosetta Sarmiento Referrals: Rosetta Sarmiento MD [Primary Care Provider] - Activity Restrictions/Additional Instructions: Your workup today was largely normal. Please follow-up with your primary care doctor especially as further episodes of syncope/passing out. Make sure drinking plenty of fluids. Avoid excessive alcohol use. I do recommend updating your tetanus as we discussed. Print Language: [place] Disposition Disposition: Home, Self Care
[2024-06-24] MEDS: 0.9% Normal Saline (1000mL) 1,000 ML 1000 ML IV (10:09)
[2024-06-24 10:12] LABS: Absolute Lymphocyte Count 3.12 X10^3/uL (0.83-4.51); Absolute Neutrophil Count 3.9 X10^3/uL (2.0-7.7); Basophil# 0.03 X10^3/uL; Basophil% 0.4 % (0-1); Eosinophil# 0.25 X10^3/uL; Eosinophils% 3.2 % (0-5); Hematocrit 40.2 % (37-47); Hemoglobin 13.8 g/dL (12.0-15.0); Lymphocyte # 3.12 X10^3/ul (0.83-4.51); Lymphocyte % 40.2 % (19-41); Mean Corp Hgb Conc 34.3 g/dL (32-36); Mean Corpuscular Hgb 29.9 pg (27.0-32.0); Mean Platelet Vol. 9.2 fl (6.2-12.0); Monocyte# 0.43 X10^3/uL; Monocyte% 5.5 % (0-10); NRBC Flagged by Analyzer 0 % (0-5); Neutrophil # 3.92 X10^3/uL (2.7-7.7); Neutrophil % 50.4 % (47-70); Platelet Count 329 K/mm3 (150-450); RBC Distribution Width CV 12.5 % (11.6-14.6); RBC Distribution Width SD 39.8 fl (35.1-43.9); Red Blood Count 4.62 M/mm3 (4.2-5.4); White Blood Count 7.8 K/mm3 (4.4-11.0)
--- NOTE | 2024-06-24 10:20 | RAD_ITS ---
PROCEDURE: CHEST PA AND LATERAL 06/24/2024 REASON FOR EXAM: SYNCOPE TECHNIQUE: Frontal and lateral views of the chest. COMPARISON: None. RAD/Chest PA and Lateral IMPRESSION: Prior sternotomy noted. No evidence of pulmonary edema. Lungs appear clear of acute disease. No pleural effusion or pneumothorax is noted. The cardiomediastinal silhouette is within the normal range. No acute osseous process is seen. No evidence of acute cardiopulmonary disease. Reading Location: [place] [id number]
[2024-06-24 10:37] LABS: ALB/GLOB Ratio 1.7 RATIO (0.9-2.4); AST(SGOT) 22 U/L (<=31); Alanine Aminotransfer ALT/SGPT 22 U/L (<=34); Albumin, Serum 4.1 g/dL (3.5-5.0); Alkaline Phosphatase 40 U/L (35-104); Anion Gap 9 (5-15); BUN 18 mg/dL (4-19); BUN/Creat Ratio 22.6 RATIO (10-20); Carbon Dioxide 24.1 mmol/L (21.0-32.0); Chloride 104 mmol/L (98-108); Creatinine, Serum 0.77 mg/dL (0.70-1.20); EST Glomerular Filtration Rate 98 (>60); Globulin 2.4 g/dL (2.2-4.2); Glucose 99 mg/dL (70-99); Lipase 49 U/L (13-75); Potassium 4.8 mmol/L (3.3-5.1); Protein, Total 6.5 g/dL (5.9-8.4); Sodium Level 137 mmol/L (133-145); Total Bilirubin 0.53 mg/dL (0.00-1.30); Troponin T High Sensitivity 7 ng/L (<=14)
[2024-06-24 11:03] VITALS: BP 115/72; BP 122/87; BP 133/85; PULSE 69; PULSE 72; PULSE 77
[2024-06-24 11:22] LABS: Bacteria 0 SEEN /hpf (None Seen); Mucous, Urine 0 SEEN /hpf (<or=2+); White Blood Cells 0 SEEN /hpf (0-5)
[2024-06-24 11:24] LABS: Color, Urine Yellow (Yellow); Glucose, Dipstick Normal (Normal); Ketone-Dipstick Negative (Negative); Leukocyte Esterase-Dipstick Negative /ul (Negative); Nitrite-Dipstick Negative (Negative); Occult Blood-Urine 10 /ul (Negative); Protein-Dipstick 30 mg/dl (Negative); Specific Gravity, Urine 1.015 (1.002-1.030); Urine Bilirubin Dipstick Negative (Negative); Urine Clarity Clear (Clear); Urine Urobilinogen Normal (Normal)
[2024-06-24 11:28] VITALS: BP 124/78; PULSE 78; RESP 16; O2SAT 98
[2024-06-24 11:32] LABS: Red Blood Cells-Urine 0-5 SEEN /hpf (0-5); Squamous Epithelial Cells - UA 0-5 SEEN /hpf (5-10)
[2024-06-24 12:05] VITALS: BP 132/66; PULSE 64; RESP 18; TEMP 37.1; O2SAT 99
== END 2024-06-24 12:11 | disposition home or self-care (01) ==
PROVIDERS: Emergency Provider Emergency Medicine; PCP Internal Medicine; Visit Provider Emergency Medicine
DX: R55 Syncope and collapse (principal); I10 Essential (primary) hypertension; S01.511A Laceration without foreign body of lip, initial encounter; Z79.82 Long term (current) use of aspirin; Z79.899 Other long term (current) drug therapy; Z79.85 Long-term (current) use of injectable non-insulin antidiabetic drugs
CPT/HCPCS: 70450; 70486; 71046; 80053; 81001; 83690; 83735; 84484; 85025; 93005; 96360; 99284; A4216